=== PATIENT | male | born 1990 | race Two or more races ===

== ENCOUNTER 2019-02-24 10:30 | Emergency (ER) | payer BC ==
--- NOTE | 2019-02-24 11:33 | EDM.PDOC ---
ED HPI GENERAL MEDICAL PROBLEM - General Chief Complaint: General Stated Complaint: DIZZY, SWEATING, DISORIENTATION Time Seen by Provider: 02/24/19 11:32 Source of Information: Reports: Patient History Limitations: Reports: No Limitations - History of Present Illness INITIAL COMMENTS - FREE TEXT/NARRATIVE: 28 years old male patient presented to the ER with his mom. History collected from the patient and his mother. Stated that he was feeling very hot at home and sweating profusely and he took off his clothes off because he feels very hot. Did not check his temperature. Mother stated that he looked confused at that time. Stated he feels dizzy when he tried to sleep but when he sat up he feels fine. Denies any headache or visual changes. Denies any focal weakness or numbness anywhere. Denies any chest pain or shortness breath. Denies any abdominal pain diarrhea or constipation. Denies any urinary symptom. Denies any nausea or vomiting. Denies any drug use or alcohol use. Denies any runny nose sore throat or congestion. No sick contact. - Related Data Allergies Allergy/AdvReac Type Severity Reaction Status Date / Time No Known Allergies Allergy Verified 02/24/19 11:00 Home Meds: Home Meds NK [No Known Home Meds] 02/24/19 [History] Past Medical History - Past Surgical History GI Surgical History: Reports: Appendectomy Social & Family History - Tobacco Use Smoking Status *Q: Current Every Day Smoker Years of Tobacco use: 15 Packs/Tins Daily: 0.2 ED ROS GENERAL - Review of Systems Review Of Systems: Comprehensive ROS is negative, except as noted in HPI. ED EXAM, GENERAL - Physical Exam Exam: See Below Exam Limited By: No Limitations General Appearance: Alert, WD/WN, No Apparent Distress Ears: Normal External Exam, Normal Canal, Hearing Grossly Normal, Normal TMs Ear Exam: Bilateral Ear: Auricle Normal, Canal Normal, TM normal Nose: Normal Inspection, Normal Mucosa, No Blood Throat/Mouth: Normal Inspection, Normal Lips, Normal Teeth, Normal Gums, Normal Oropharynx, Normal Voice, No Airway Compromise Head: Atraumatic, Normocephalic Neck: Normal Inspection, Supple, Non-Tender, Full Range of Motion Respiratory/Chest: No Respiratory Distress, Lungs Clear, Normal Breath Sounds, No Accessory Muscle Use, Chest Non-Tender, Other (Tenderness on palpation of the right lower lateral rib. No swelling, deformity. Petechial rash all Z right chest wall and right side of the neck) Cardiovascular: Normal Peripheral Pulses, Regular Rate, Rhythm, No Edema, No Gallop, No JVD, No Murmur, No Rub GI/Abdominal: Normal Bowel Sounds, Soft, Non-Tender, No Organomegaly, No Distention, No Abnormal Bruit, No Mass (Male) Exam: No Hernia, Normal Inspection, Normal Prostate, Circumcised Rectal (Males) Exam: Normal Exam, Normal Rectal Tone, Prostate Normal Back Exam: Normal Inspection, Full Range of Motion, NT Extremities: Normal Inspection, Normal Range of Motion, Non-Tender, Normal Capillary Refill, No Pedal Edema Neurological: Alert, Oriented, CN II-XII Intact, Normal Cognition, Normal Gait, Normal Reflexes, No Motor/Sensory Deficits Psychiatric: Normal Affect, Normal Mood Skin Exam: Warm, Dry, Intact, Normal Color, No Rash Lymphatic: No Adenopathy Course - Vital Signs Last Recorded V/S: Last Vital Signs Temp 36.1 C 02/24/19 11:36 Pulse 86 02/24/19 11:36 Resp 14 02/24/19 11:36 BP 133/97 H 02/24/19 11:36 Pulse Ox 100 02/24/19 11:36 - Orders/Labs/Meds Orders: Active Orders 24 hr Category Date Time Status EKG Documentation Completion [RC] ASDIRECTED Care 02/24/19 11:42 Active CULTURE BLOOD [BC] Urgent Lab 02/24/19 14:57 Ordered CULTURE BLOOD [BC] Urgent Lab 02/24/19 14:57 Ordered Blood Culture x2 Reflex Set [OM.PC] Urgent Oth 02/24/19 14:57 Ordered EKG 12 Lead [EK] Urgent Ther 02/24/19 11:40 Ordered Labs: Laboratory Tests 02/24/19 02/24/19 02/24/19 Range/Units 11:40 11:57 11:57 WBC 12.3 H (4.5-11.0) K/uL RBC 5.33 (4.30-5.90) M/uL Hgb 13.8 (12.0-15.0) g/dL Hct 42.3 (40.0-54.0) % MCV 79 L (80-98) fL MCH 26 L (27-31) pg MCHC 33 (32-36) % Plt Count 341 (150-400) K/uL Neut % (Auto) 80 H (36-66) % Lymph % (Auto) 13 L (24-44) % [place] % (Auto) 6 (2-6) % Eos % (Auto) 2 (2-4) % Baso % (Auto) 0 (0-1) % ESR 9 (0-20) mm/hr PT 10.0 (9.5-12.0) sec INR 0.92 (0.80-1.20) APTT 24.9 L (27.0-36.0) sec D-Dimer, Quantitative (0.0-400.0) ng/mL Sodium (140-148) mmol/L Potassium (3.6-5.2) mmol/L Chloride (100-108) mmol/L Carbon Dioxide (21-32) mmol/L Anion Gap (5.0-14.0) mmol/L BUN (7-18) mg/dL Creatinine (0.8-1.3) mg/dL Est Cr Clr Drug Dosing mL/min Estimated GFR (MDRD) (>60) Glucose (74-106) mg/dL Lactic Acid (0.4-2.0) mmol/L Calcium (8.5-10.1) mg/dL Total Bilirubin (0.2-1.0) mg/dL AST (15-37) U/L ALT (12-78) U/L Alkaline Phosphatase (46-116) U/L Troponin I (0.000-0.056) ng/mL C-Reactive Protein (0.0-0.3) mg/dL Total Protein (6.4-8.2) g/dL Albumin (3.4-5.0) g/dL Globulin (2.3-3.5) g/dL Albumin/Globulin Ratio (1.2-2.2) Urine Opiates Screen Negative (NEGATIVE) Ur Oxycodone Screen Negative (NEGATIVE) Urine Methadone Screen Negative (NEGATIVE) Ur Propoxyphene Screen Negative (NEGATIVE) Ur Barbiturates Screen Negative (NEGATIVE) Ur Tricyclics Screen Negative (NEGATIVE) Ur Phencyclidine Scrn Negative (NEGATIVE) Ur Amphetamine Screen Presumptive positive H (NEGATIVE) U Methamphetamines Scrn Presumptive positive H (NEGATIVE) Urine MDMA Screen Negative (NEGATIVE) U Benzodiazepines Scrn Negative (NEGATIVE) U Cocaine Metab Screen Negative (NEGATIVE) U Marijuana (THC) Screen Presumptive positive H (NEGATIVE) 02/24/19 02/24/19 02/24/19 Range/Units 11:57 11:57 11:57 WBC (4.5-11.0) K/uL RBC (4.30-5.90) M/uL Hgb (12.0-15.0) g/dL Hct (40.0-54.0) % MCV (80-98) fL MCH (27-31) pg MCHC (32-36) % Plt Count (150-400) K/uL Neut % (Auto) (36-66) % Lymph % (Auto) (24-44) % [place] % (Auto) (2-6) % Eos % (Auto) (2-4) % Baso % (Auto) (0-1) % ESR (0-20) mm/hr PT (9.5-12.0) sec INR (0.80-1.20) APTT (27.0-36.0) sec D-Dimer, Quantitative < 100 (0.0-400.0) ng/mL Sodium 138 L (140-148) mmol/L Potassium 4.6 (3.6-5.2) mmol/L Chloride 103 (100-108) mmol/L Carbon Dioxide 27 (21-32) mmol/L Anion Gap 12.6 (5.0-14.0) mmol/L BUN 8 (7-18) mg/dL Creatinine 0.9 (0.8-1.3) mg/dL Est Cr Clr Drug Dosing 138.10 mL/min Estimated GFR (MDRD) > 60 (>60) Glucose 99 (74-106) mg/dL Lactic Acid 2.1 H (0.4-2.0) mmol/L Calcium 8.4 L (8.5-10.1) mg/dL Total Bilirubin 0.1 L (0.2-1.0) mg/dL AST 16 (15-37) U/L ALT 31 (12-78) U/L Alkaline Phosphatase 63 (46-116) U/L Troponin I < 0.017 (0.000-0.056) ng/mL C-Reactive Protein 0.19 (0.0-0.3) mg/dL Total Protein 7.4 (6.4-8.2) g/dL Albumin 4.1 (3.4-5.0) g/dL Globulin 3.3 (2.3-3.5) g/dL Albumin/Globulin Ratio 1.2 (1.2-2.2) Urine Opiates Screen (NEGATIVE) Ur Oxycodone Screen (NEGATIVE) Urine Methadone Screen (NEGATIVE) Ur Propoxyphene Screen (NEGATIVE) Ur Barbiturates Screen (NEGATIVE) Ur Tricyclics Screen (NEGATIVE) Ur Phencyclidine Scrn (NEGATIVE) Ur Amphetamine Screen (NEGATIVE) U Methamphetamines Scrn (NEGATIVE) Urine MDMA Screen (NEGATIVE) U Benzodiazepines Scrn (NEGATIVE) U Cocaine Metab Screen (NEGATIVE) U Marijuana (THC) Screen (NEGATIVE) 02/24/19 Range/Units 14:05 WBC (4.5-11.0) K/uL RBC (4.30-5.90) M/uL Hgb (12.0-15.0) g/dL Hct (40.0-54.0) % MCV (80-98) fL MCH (27-31) pg MCHC (32-36) % Plt Count (150-400) K/uL Neut % (Auto) (36-66) % Lymph % (Auto) (24-44) % [place] % (Auto) (2-6) % Eos % (Auto) (2-4) % Baso % (Auto) (0-1) % ESR (0-20) mm/hr PT (9.5-12.0) sec INR (0.80-1.20) APTT (27.0-36.0) sec D-Dimer, Quantitative (0.0-400.0) ng/mL Sodium (140-148) mmol/L Potassium (3.6-5.2) mmol/L Chloride (100-108) mmol/L Carbon Dioxide (21-32) mmol/L Anion Gap (5.0-14.0) mmol/L BUN (7-18) mg/dL Creatinine (0.8-1.3) mg/dL Est Cr Clr Drug Dosing mL/min Estimated GFR (MDRD) (>60) Glucose (74-106) mg/dL Lactic Acid 0.5 (0.4-2.0) mmol/L Calcium (8.5-10.1) mg/dL Total Bilirubin (0.2-1.0) mg/dL AST (15-37) U/L ALT (12-78) U/L Alkaline Phosphatase (46-116) U/L Troponin I (0.000-0.056) ng/mL C-Reactive Protein (0.0-0.3) mg/dL Total Protein (6.4-8.2) g/dL Albumin (3.4-5.0) g/dL Globulin (2.3-3.5) g/dL Albumin/Globulin Ratio (1.2-2.2) Urine Opiates Screen (NEGATIVE) Ur Oxycodone Screen (NEGATIVE) Urine Methadone Screen (NEGATIVE) Ur Propoxyphene Screen (NEGATIVE) Ur Barbiturates Screen (NEGATIVE) Ur Tricyclics Screen (NEGATIVE) Ur Phencyclidine Scrn (NEGATIVE) Ur Amphetamine Screen (NEGATIVE) U Methamphetamines Scrn (NEGATIVE) Urine MDMA Screen (NEGATIVE) U Benzodiazepines Scrn (NEGATIVE) U Cocaine Metab Screen (NEGATIVE) U Marijuana (THC) Screen (NEGATIVE) Meds: Medications Discontinued Medications Generic Name Dose Route Start Last Admin Trade Name Freq PRN Reason Stop Dose Admin Sodium Chloride 1,000 mls @ 999 mls/hr 02/24/19 13:03 02/24/19 13:12 Normal Saline IV 02/24/19 14:03 999 mls/hr .BOLUS STA Administration - Re-Assessments/Exams Free Text/Narrative Re-Assessment/Exam: 02/24/19 11:47 Patient was seen and examined shortly after arrival. Stable. EKG, lab and imaging reviewed with the patient. EKG shows ST elevation this is most likely early repolarization. No chest pain. No shortness breath. Troponin is normal. No previous EKG to compare. Advised to follow-up closely with his primary doctor and review EKG result. Elevated white count with left shift. Lactic acid is 2.1. Unclear etiology. Was given 1 L normal saline bolus, repeat lactic acid back to normal 0.5. Chest x-ray shows no acute cardiopulmonary process. Patient denies using any recreational drugs however his urine tox positive for meth and marijuana. And when I asked him again he said he only uses marijuana although he denied as beginning. Continued to deny using meth. Concern about IV drug use , possible bacteremia. I did order blood culture for the patient and also offered him admission for monitoring and further management. Patient refused admission, stated he is feeling much better, back to normal and symptoms completely resolved. Requested to be discharged and then eloped before blood culture done and also before being discharged. Advised to rest, hydration, stop drug use, close follow-up with PCP in one or 2 days for reevaluation, come back for any concern or any worsening symptom. Patient agrees with the plan. Again patient eloped before pain discharge 02/24/19 15:02 Departure - Departure Time of Disposition: 14:55 Disposition: Eloped 07 Condition: Good Clinical Impression: Methamphetamine use, Flu-like symptoms, Lactic acid acidosis, Leukocytosis - Discharge Information Referrals: PCP,None [Primary Care Provider] - Forms: ED Department Discharge Additional Instructions: Advised to rest, hydration, stop drug use, close follow-up with PCP in one or 2 days for reevaluation, come back for any concern or any worsening symptom. Patient agrees with the plan. Sepsis Event Note - Focused Exam Vital Signs: Vital Signs Temp Pulse Resp BP Pulse Ox 02/24/19 11:36 36.1 C 86 14 133/97 H 100 02/24/19 11:17 36.1 C 86 14 133/97 H 100 Date Exam was Performed: 02/24/19 Time Exam was Performed: 15:00 - My Orders Last 24 Hours: My Active Orders 02/24/19 11:40 EKG 12 Lead [EK] Urgent 02/24/19 11:42 EKG Documentation Completion [RC] ASDIRECTED 02/24/19 14:57 CULTURE BLOOD [BC] Urgent CULTURE BLOOD [BC] Urgent Blood Culture x2 Reflex Set [OM.PC] Urgent - Assessment/Plan Last 24 Hours: My Active Orders 02/24/19 11:40 EKG 12 Lead [EK] Urgent 02/24/19 11:42 EKG Documentation Completion [RC] ASDIRECTED 02/24/19 14:57 CULTURE BLOOD [BC] Urgent CULTURE BLOOD [BC] Urgent Blood Culture x2 Reflex Set [OM.PC] Urgent Plan: Advised to rest, hydration, stop drug use, close follow-up with PCP in one or 2 days for reevaluation, come back for any concern or any worsening symptom. Patient agrees with the plan.
--- NOTE | 2019-02-24 12:49 | CRLCR ---
Indication: Chest pain. Technique: PA and lateral views the chest. Comparison: None Findings: The heart is normal in size. The lungs are clear. No infiltrate, pleural effusion, or pneumothorax is identified. Impression: No acute cardiopulmonary process. Dictated by Glenis Medina MD @ Feb 24 2019 12:48PM Signed by Dr. Glenis Medina @ Feb 24 2019 12:48PM
[2019-02-24] MEDS ORDERED: Sodium Chloride 0.9% 1,000 ML IV STA (13:03)
== END 2019-02-24 15:02 | disposition left against medical advice (07) ==
LOC: JP.ED 10:30
DX: F15.90 Other stimulant use, unspecified, uncomplicated (principal); E87.2 Acidosis; D72.829 Elevated white blood cell count, unspecified; R09.89 Other specified symptoms and signs involving the circulatory and respiratory systems; F17.210 Nicotine dependence, cigarettes, uncomplicated
CPT/HCPCS: 36415; 71046; 80053; 80305; 83605; 84484; 85025; 85379; 85610; 85651; 85730; 86140; 87804; 93005; 96360; 99285; J7030

== ENCOUNTER 2019-06-29 11:23 | Emergency (ER) | payer BC, MEDICAID, OTHER ==
--- NOTE | 2019-06-29 11:55 | EDM.PDOC ---
ED HPI GENERAL MEDICAL PROBLEM - General Chief Complaint: Neurological Problem Stated Complaint: SEIZURE Time Seen by Provider: 06/29/19 11:55 Source of Information: Reports: Patient, Old Records, RN History Limitations: Reports: No Limitations - History of Present Illness INITIAL COMMENTS - FREE TEXT/NARRATIVE: 29 yo male presents reporting that he had another seizure. This is his 3rd. He was seen here in our ER after the first seizure in 02/21 and had a negative work up except that he had methamphetamine in his urine on drug testing. A head CT scan was not done during that visit. Later, in May he had another seizure and was not seen by a medical provider. This morning, as with both his prior "seizures", he reports he had a seizure in his sleep just before he woke up. With none of these spells has he had urinary incontinence or tongue biting. The event today was not witnessed. He has not gotten established with primary care even though he was advised to do so when seen in the ER in February. He currently denies CASTRO, nausea, or unilateral weakness or numbness. Onset: Today Onset Date: 06/29/19 Onset Time: 07:30 Duration: Minutes:, Resolved Prior to Arrival Location: Reports: Generalized Quality: Reports: Other (no pain reported) Severity: Mild Improves with: Reports: Other (time) Worsens with: Reports: Other (unknown) Context: Reports: Other (See HPI) Associated Symptoms: Reports: Seizure. Denies: Fever/Chills, Headaches, Nausea/ Vomiting Treatments SUPERVISOR INSPECTION: Reports: Other (see below) (none) denies Pain Score (Numeric/FACES): 0 - Related Data Allergies Allergy/AdvReac Type Severity Reaction Status Date / Time No Known Allergies Allergy Verified 06/29/19 11:36 Home Meds: Home Meds levETIRAcetam [Keppra] 500 mg PO BID #60 tab 06/29/19 [Rx] Past Medical History Neurological History: Reports: Seizure - Infectious Disease History Infectious Disease History: Reports: Chicken Pox - Past Surgical History GI Surgical History: Reports: Appendectomy Social & Family History - Tobacco Use Smoking Status *Q: Current Every Day Smoker Years of Tobacco use: 17 Packs/Tins Daily: 0.5 Used Tobacco, but Quit: No Second Hand Smoke Exposure: Yes - Caffeine Use Caffeine Use: Reports: Coffee, Energy Drinks, Soda, Tea - Recreational Drug Use Recreational Drug Use: Yes Drug Use in Last 12 Months: Yes Recreational Drug Type: Reports: Marijuana/Hashish Recreational Drug Use Frequency: Weekly ED ROS GENERAL - Review of Systems Review Of Systems: See Below Constitutional: Reports: No Symptoms HEENT: Reports: No Symptoms Respiratory: Reports: No Symptoms Cardiovascular: Reports: No Symptoms Endocrine: Reports: No Symptoms GI/Abdominal: Reports: No Symptoms : Reports: No Symptoms Musculoskeletal: Reports: No Symptoms Skin: Reports: No Symptoms Neurological: Reports: Dizziness (sometimes with standing, not vertigo), Seizure. Denies: Confusion, Headache, Numbness, Tingling, Trouble Speaking, Difficulty Walking, Weakness, Change in Speech, Gait Disturbance Psychiatric: Reports: No Symptoms - Physical Exam Exam: See Below Exam Limited By: No Limitations General Appearance: Alert, WD/WN, No Apparent Distress Eye Exam: Bilateral Eye: EOMI, Normal Inspection, PERRL Ears: Normal External Exam, Normal Canal, Hearing Grossly Normal, Normal TMs Nose: Normal Inspection, No Blood Throat/Mouth: Normal Inspection, Normal Lips, Normal Oropharynx, Normal Voice, No Airway Compromise. No: Evidence of Tongue Biting Head Exam: Atraumatic, Normocephalic Neck: Normal Inspection Respiratory/Chest: No Respiratory Distress, Lungs Clear, Normal Breath Sounds, No Accessory Muscle Use Cardiovascular: Regular Rate, Rhythm, No Edema GI/Abdominal: Normal Bowel Sounds, Soft, Non-Tender, No Distention Neuro Exam (Abbreviated): Alert, Oriented, CN II-XII Intact, Normal Cognition, No Motor/Sensory Deficits Back Exam: No: CVA Tenderness (R), CVA Tenderness (L) Extremities: Normal Inspection, Normal Range of Motion, Non-Tender, No Pedal Edema Psychiatric: Normal Affect, Normal Mood Skin Exam: Warm, Dry, Intact, Normal Color, No Rash Course - Vital Signs Text/Narrative:: Keppra 1000 mg po given Last Recorded V/S: Last Vital Signs Temp 36.1 C 06/29/19 11:44 Pulse 73 06/29/19 11:44 Resp 16 06/29/19 11:44 BP 129/85 06/29/19 11:44 Pulse Ox 100 06/29/19 11:44 - Orders/Labs/Meds Labs: Laboratory Tests 06/29/19 Range/Units 11:58 Urine Opiates Screen Negative (NEGATIVE) Ur Oxycodone Screen Negative (NEGATIVE) Urine Methadone Screen Negative (NEGATIVE) Ur Propoxyphene Screen Negative (NEGATIVE) Ur Barbiturates Screen Negative (NEGATIVE) Ur Tricyclics Screen Negative (NEGATIVE) Ur Phencyclidine Scrn Negative (NEGATIVE) Ur Amphetamine Screen Presumptive positive H (NEGATIVE) U Methamphetamines Scrn Presumptive positive H (NEGATIVE) Urine MDMA Screen Negative (NEGATIVE) U Benzodiazepines Scrn Negative (NEGATIVE) U Cocaine Metab Screen Negative (NEGATIVE) U Marijuana (THC) Screen Presumptive positive H (NEGATIVE) Meds: Medications Discontinued Medications Generic Name Dose Route Start Last Admin Trade Name Freq PRN Reason Stop Dose Admin Levetiracetam 1,000 mg 06/29/19 12:56 Keppra PO 06/29/19 12:57 NOW STA - Radiology Interpretation Free Text/Narrative:: Head CT scan- IMPRESSION: Abnormal right-sided findings as above. Please review the comment regarding differential considerations. An MRI is advised at a clinically appropriate time. I discussed the above findings with Dr. Delaney at 12:50 p.m. on June 25, [address] note that all [address] scans at this facility use dose modulation, iterative reconstruction, and/or weight-based dosing when appropriate to reduce radiation dose to as low as reasonably achievable. Dictated by Mejia Bernabe MD @ Jun 29 2019 12:50PM CT Results Date: 06/29/19 CT Results Time: 13:00 Departure - Departure Time of Disposition: 13:15 Disposition: Home, Self-Care 01 Condition: Fair Clinical Impression: Seizure-like activity, Abnormal head CT, Marijuana smoker, Methamphetamine use - Discharge Information *PRESCRIPTION DRUG MONITORING PROGRAM REVIEWED*: No *COPY OF PRESCRIPTION DRUG MONITORING REPORT IN PATIENT TIARA: No Prescriptions: levETIRAcetam [Keppra] 500 mg PO BID #60 tab Instructions: Stimulant Use Disorder-Methamphetamines, Seizure, Adult, Easy-to- Read Referrals: PCP,None [Primary Care Provider] - Forms: ED Department Discharge Additional Instructions: Take Keppra every 12 hrs. Follow up in the clinic early next week. You will need neurology referral and a brain MRI. No driving or operating dangerous equipment until cleared by neurology. No use of illicit drugs as this may be contributing to your problems. Sepsis Event Note - Evaluation Sepsis Screening Result: No Definite Risk - Focused Exam Vital Signs: Vital Signs Temp Pulse Resp BP Pulse Ox 06/29/19 11:44 36.1 C 73 16 129/85 100 06/29/19 11:38 36.1 C 73 16 129/85 100 Date Exam was Performed: 06/29/19 Time Exam was Performed: 13:02
[2019-06-29] MEDS ORDERED: levETIRAcetam 250 MG Tab PO STA (12:56)
--- NOTE | 2019-06-29 12:58 | CRLCT ---
INDICATION: Seizure disorder COMPARISON: None TECHNIQUE: CT examination of the head was performed as axial sections without intravenous contrast. Images were obtained from the vertex of the skull through the skull base. Please note that all CT scans at this facility use dose modulation, iterative reconstruction, and/or weight-based dosing when appropriate to reduce radiation dose to as low as reasonably achievable. FINDINGS: There is a low-density area identified that overlies the tentorium on the right. This is above the tentorium and is associated with what is likely the extra-axial space of the inferior right occipital lobe and possibly a portion of the right parietal lobe. This is relatively well circumscribed and is favored to represent an arachnoid cyst. This measures about 4 centimeters anteroposteriorly and about 1/2 centimeters mediolaterally and about 7 millimeters in depth. The possibility of this being a parenchymal lesion is raised especially in a patient with seizure disorder. An MRI is advised for further evaluation IMPRESSION: Abnormal right-sided findings as above. Please review the comment regarding differential considerations. An MRI is advised at a clinically appropriate time. I discussed the above findings with Dr. Delaney at 12:50 p.m. on June 25, [address] all [address] scans at this facility use dose modulation, iterative reconstruction, and/or weight-based dosing when appropriate to reduce radiation dose to as low as reasonably achievable. Dictated by Mejia Bernabe MD @ Jun 29 2019 12:50PM Signed by Dr. Mejia Bernabe @ Jun 29 2019 12:56PM
== END 2019-06-29 13:23 | disposition home or self-care (01) ==
LOC: JP.ED 11:23
DX: R56.9 Unspecified convulsions (principal); F15.90 Other stimulant use, unspecified, uncomplicated; F12.90 Cannabis use, unspecified, uncomplicated; R93.0 Abnormal findings on diagnostic imaging of skull and head, not elsewhere classified; F17.210 Nicotine dependence, cigarettes, uncomplicated; Z79.899 Other long term (current) drug therapy; Z90.49 Acquired absence of other specified parts of digestive tract
CPT/HCPCS: 70450; 80305; 99284; A9270